=== PATIENT | female | born 1975 | race Hispanic/Latino ===

== ENCOUNTER → 2022-09-26 | Outpatient (CLI) | payer OTHER | END | disposition home or self-care (01) | LOC: LAB 11:21 | PROVIDERS: ATTEND Obstetrics & Gynecology | DX: N95.1 Menopausal and female climacteric states (principal); R25.2 Cramp and spasm | CPT/HCPCS: 36415; 82306; 82670; 83001; 84140 ==

== ENCOUNTER → 2022-10-09 | Outpatient (CLI) | payer OTHER | END | disposition home or self-care (01) | LOC: RAH 13:06 | PROVIDERS: ATTEND Obstetrics & Gynecology | DX: Z12.31 Encounter for screening mammogram for malignant neoplasm of breast (principal); R10.2 Pelvic and perineal pain | CPT/HCPCS: 76830; 77067 ==

== ENCOUNTER → 2022-10-16 | Outpatient (CLI) | payer OTHER | END | disposition home or self-care (01) | LOC: RAH 08:32 | PROVIDERS: ATTEND Family Medicine | DX: K76.0 Fatty (change of) liver, not elsewhere classified (principal); N26.1 Atrophy of kidney (terminal); R10.84 Generalized abdominal pain | CPT/HCPCS: 76700 ==

== ENCOUNTER 2022-10-26 22:40 | Emergency (ER) | payer OTHER ==
[~2022-10-26] VITALS: Ht 154.9 cm; Wt 85.7 kg
[2022-10-26 22:41] VITALS: BP 126/67
[2022-10-26] MEDS ORDERED: TETANUS/DIPHTHERIA TOXOID [ADULT] 0.5 ML VIAL IM ONE (23:30)
== END 2022-10-26 23:48 | disposition home or self-care (01) ==
LOC: EDH 22:40
DX: S61.232A Puncture wound without foreign body of right middle finger without damage to nail, initial encounter (principal); Z90.89 Acquired absence of other organs; Z90.710 Acquired absence of both cervix and uterus; W46.1XXA Contact with contaminated hypodermic needle, initial encounter; Y93.89 Activity, other specified; Y92.89 Other specified places as the place of occurrence of the external cause; Y99.0 Civilian activity done for income or pay
CPT/HCPCS: 90471; 90714

== ENCOUNTER 2022-10-29 16:34 | Emergency (ER) | payer OTHER ==
[~2022-10-29] VITALS: Ht 154.9 cm; Wt 86.2 kg
[2022-10-29] MEDS ORDERED: RALT400T PO (18:20)
[2022-10-29] MEDS ORDERED: EMTR1TAB11 PO (18:20)
[2022-10-29] MEDS ORDERED: EMTRICITABINE/TENOFOVIR 200/300 MG TAB PO SCH (18:30)
[2022-10-29] MEDS ORDERED: RALTEGRAVIR POTASSIUM 400 MG TAB PO SCH (18:30)
[2022-10-29 18:45] VITALS: BP 132/61
== END 2022-10-29 18:43 | disposition home or self-care (01) ==
LOC: EDH 16:36
DX: S69.91XA Unspecified injury of right wrist, hand and finger(s), initial encounter (principal); Z90.710 Acquired absence of both cervix and uterus; Z90.49 Acquired absence of other specified parts of digestive tract; X58.XXXA Exposure to other specified factors, initial encounter; Y93.89 Activity, other specified; Y92.89 Other specified places as the place of occurrence of the external cause; Y99.8 Other external cause status

== ENCOUNTER → 2022-10-29 | Outpatient (CLI) | payer OTHER ==
[~2022-10-29] MED LIST: EMTR1TAB11 PO; RALT400T PO
== END | disposition home or self-care (01) ==
LOC: RAH 12:09
PROVIDERS: ATTEND Obstetrics & Gynecology
DX: N60.01 Solitary cyst of right breast (principal); R92.8 Other abnormal and inconclusive findings on diagnostic imaging of breast
CPT/HCPCS: 77066